=== PATIENT | male | born 1985 ===

== ENCOUNTER 2020-06-13 14:33 | Emergency (ER) | payer BC, OTHER ==
[2020-06-13] MEDS ORDERED: Diphtheria,Pertussis(Acell),Tetanus Vaccine 0.5 ML Syringe IM ONE (14:43)
[2020-06-13] MEDS ORDERED: Bacitracin/Neomycin/Polymyxin B Oint 0.9 GM U/D Packet TOP ONE (14:43)
--- NOTE | 2020-06-13 16:01 | EDM.PDOC ---
ED HPI GENERAL MEDICAL PROBLEM - General Chief Complaint: Upper Extremity Injury/Pain Stated Complaint: crush injury Time Seen by Provider: 06/13/20 15:00 Source of Information: Reports: Patient History Limitations: Reports: No Limitations - History of Present Illness INITIAL COMMENTS - FREE TEXT/NARRATIVE: He is seen for evaluation of a crush injury to his left third finger. The finger was smashed in a metal gate this afternoon. Significant pain in the end of the finger. Laceration along the side of the nail. No other injury. Left Finger-Middle Pain Score (Numeric/FACES): 2 - Related Data Allergies Allergy/AdvReac Type Severity Reaction Status Date / Time No Known Allergies Allergy Verified 06/13/20 14:34 Home Meds: Home Meds cephALEXin [Keflex] 500 mg PO Q8H 6 Days cap 06/13/20 [Rx] Past Medical History HEENT History: Reports: Impaired Vision Psychiatric History: Reports: None - Past Surgical History HEENT Surgical History: Reports: Oral Surgery Social & Family History - Tobacco Use Tobacco Use Status *Q: Current Every Day Tobacco User Years of Tobacco use: 4 Packs/Tins Daily: 0.3 Review of Systems - Review of Systems Review Of Systems: See Below Constitutional: Denies: Chills, Diaphoresis Eyes: Denies: Blurred Vision Ears: Denies: Dizziness, Pain Nose: Denies: Congestion, Epistaxis Mouth/Throat: Reports: Pain. Denies: Difficulty Swallowing Respiratory: Denies: Shortness of Breath, Cough Cardiovascular: Reports: Chest Pain, Palpitations GI/Abdominal: Denies: Abdominal Pain, Nausea, Vomiting Musculoskeletal: Reports: Other (finger pain) Skin: Reports: Wound Neurological: Denies: Confusion, Dizziness Psychiatric: Denies: Depression, Anxiety ED EXAM, GENERAL - Physical Exam Exam: See Below Exam Limited By: No Limitations General Appearance: Alert, WD/WN, No Apparent Distress Extremities: Other (Swelling, bleeding and redness distal left third finger. !.5 cm vertical laceration extending to the mail of the third finger on the ulnar aspect. After removal of the nail, noted a two cm v shaped laceration in the proximal nail bed, and a horizontal 1 cm laceration in the distal nail bed. Trish) Course - Vital Signs Text/Narrative:: Digital block of the left third finger was done with a total of 10 cc 1 percent lidocaine with good analgesia. Nail was removed to reveal two lacerations in the nail bed. Tourniquet was applied to the finger and the finger cleansed with betadine and draped with a sterile towel. The v shaped laceration was closed with 4 simple interrupted sutures using 4-0 chromic. The smaller distal laceration was closed with two simple interrupted sutures using 4-0 chromic. The laceration on the ulnar side of the finger was closed with 4 simple interrupted sutures using a 4-0 ethilon. The nail was replaced and a single suture placed to hold it. Tourniquet was removed. Finger was cleansed and antibiotic ointment ant dressing were applied. There were no complications. Given routine wound care instructions. Last Recorded V/S: Last Vital Signs Temp 36.9 C 06/13/20 14:34 Pulse 101 H 06/13/20 14:34 Resp 18 06/13/20 14:34 BP 147/90 H 06/13/20 14:52 Pulse Ox 97 06/13/20 14:34 - Orders/Labs/Meds Orders: Active Orders 24 hr Category Date Time Status Vaccines to be Administered [RC] PER UNIT ROUTINE Care 06/13/20 14:43 Active Fingers Third Digit Lt F2 [CR] Stat Exams 06/13/20 14:42 Taken Meds: Medications Discontinued Medications Generic Name Dose Route Start Last Admin Trade Name Bobbyq PRN Reason Stop Dose Admin Diphtheria/Tetanus/Acell Pertussis 0.5 ml 06/13/20 14:43 06/13/20 15:03 Diphtheria,Pertussis(Acell),Tetanus Vaccine 0.5 Ml Syringe IM 06/13/20 14:44 0.5 ml .ONCE ONE Administration Lidocaine HCl 5 ml 06/13/20 14:43 06/13/20 15:08 Lidocaine 1% 5 Ml Sdv INJECT 06/13/20 14:44 5 ml ONETIME ONE Administration Lidocaine HCl Confirm 06/13/20 15:05 06/13/20 15:08 Lidocaine 1% 5 Ml Sdv Administered 06/13/20 15:06 Not Given Dose 5 ml .ROUTE .STK-MED ONE Lidocaine HCl 5 ml 06/13/20 15:07 06/13/20 15:08 Lidocaine 1% 5 Ml Sdv INJECT 06/13/20 15:08 5 ml ONETIME ONE Administration Neomycin/Polymyxin/Bacitracin 1 each 06/13/20 14:43 06/13/20 15:08 Bacitracin/Neomycin/Polymyxin B Oint 0.9 Gm U/D Packet TOP 06/13/20 14:44 1 each ONETIME ONE Administration - Radiology Interpretation Free Text/Narrative:: Distal tuft fracture of the left third distal phalanx. Departure - Departure Time of Disposition: 15:58 Disposition: Home, Self-Care 01 Condition: Good Clinical Impression: Nailbed laceration, finger, Fracture of distal phalanx of finger of left hand - Discharge Information *PRESCRIPTION DRUG MONITORING PROGRAM REVIEWED*: Not Applicable *COPY OF PRESCRIPTION DRUG MONITORING REPORT IN PATIENT JOEL: Not Applicable Prescriptions: cephALEXin [Keflex] 500 mg PO Q8H 6 Days cap Instructions: Finger Fracture, Adult, [id number], Cephalexin Tablets or Capsules, Sutured Wound Care, [id number] Referrals: PCP,Unknown [Primary Care Provider] - Forms: ED Department Discharge Additional Instructions: Keep dressing on for 24 hours. Monitor for signs of infection (increasing redness, drainage, fever). Suture removal in ten days. Keep padding or splint over the end of the finger. Keflex 500mg three times daily for 10 days. Sepsis Event Note (ED) - Evaluation Sepsis Screening Result: No Definite Risk - Focused Exam Vital Signs: Vital Signs Temp Pulse Resp BP Pulse Ox 06/13/20 14:52 147/90 H 06/13/20 14:34 36.9 C 101 H 18 158/93 H 97 - Problem List & Annotations (1) Fracture of distal phalanx of finger of left hand SNOMED Code(s): 16590518, 32846574666667637 Code(s): S62.639A - DISP FX OF DISTAL PHALANX OF UNSP FINGER, INIT FOR CLOS FX Status: Acute Current Visit: No (2) Nailbed laceration, finger SNOMED Code(s): 511778929 Code(s): S61.319A - LACERATION W/O FB OF UNSP FINGER W DAMAGE TO NAIL, INIT Status: Acute Current Visit: No - My Orders Last 24 Hours: My Active Orders 06/13/20 14:42 Fingers Third Digit Lt F2 [CR] Stat 06/13/20 14:43 Vaccines to be Administered [RC] PER UNIT ROUTINE - Assessment/Plan Last 24 Hours: My Active Orders 06/13/20 14:42 Fingers Third Digit Lt F2 [CR] Stat 06/13/20 14:43 Vaccines to be Administered [RC] PER UNIT ROUTINE Plan: Keep dressing on for 24 hours. Monitor for signs of infection (increasing redness, drainage, fever). Suture removal in ten days. Keep padding or splint over the end of the finger. Keflex 500mg three times daily for 10 days.
== END 2020-06-13 16:15 | disposition home or self-care (01) ==
LOC: LL.ED 14:33
DX: S62.633A Displaced fracture of distal phalanx of left middle finger, initial encounter for closed fracture (principal); S61.313A Laceration without foreign body of left middle finger with damage to nail, initial encounter; Z23 Encounter for immunization; Z72.0 Tobacco use; W23.0XXA Caught, crushed, jammed, or pinched between moving objects, initial encounter
CPT/HCPCS: 11730; 11760; 12001; 73140-F2; 90471; 90715; 99283; 99283-25